=== PATIENT | female | born 1960 | race Two or more races ===

== ENCOUNTER 2017-08-06 06:30 | Day surgery (SDC) | payer OTHER | END 2017-08-06 10:05 | disposition home or self-care (01) | LOC: AMB-ENDOS 06:30 | DX: D12.4 Benign neoplasm of descending colon (principal); D12.5 Benign neoplasm of sigmoid colon; D12.3 Benign neoplasm of transverse colon ==

== ENCOUNTER 2018-09-09 07:38 | Day surgery (SDC) | payer OTHER | END 2018-09-09 12:20 | disposition home or self-care (01) | LOC: AMB-ENDOS 07:38 | DX: K63.5 Polyp of colon (principal); K57.30 Diverticulosis of large intestine without perforation or abscess without bleeding ==